=== PATIENT | male | born 1980 | race Hispanic/Latino ===

== ENCOUNTER 2022-12-07 18:42 | Emergency (ER) | payer OTHER, SELFPAY ==
[2022-12-07 18:45] VITALS: BP 153/108; PULSE 111; RESP 16; TEMP 36.6; O2SAT 96; BMI 40.1
--- NOTE | 2022-12-07 19:05 | ED_ITS ---
HPI - General Adult General Chief complaint: Psychiatric Symptoms Stated complaint: self harm Time Seen by Provider: 12/07/22 18:58 Source: patient and police Mode of arrival: Ambulatory History of Present Illness HPI narrative: 42-year-old male former smoker with PTSD and BPD presents with Radha Mendoza and the report of suicidal ideation. He states that he was having suicidal ideation with plan to slit his throat or cut his wrists with scissors. He has been having thoughts of driving his truck into oncoming traffic. He has history of prior suicide attempts with overdose in the past. He reports he was just discharged today from a mental health facility in [place]. He states he is actively having suicidal thoughts with plan, he did not even make it home before his thoughts overwhelmed him and he called 911. He states that he had been hospitalized for a week and a half and the only medication change was an increase in his Fluoxetine to 30mg. He denies any alcohol or street drug Related Data Home Medications Medication Instructions Recorded Confirmed cholecalciferol (vitamin D3) 25 25 mcg PO DAILY 12/07/22 12/07/22 mcg (1,000 unit) capsule fluoxetine 20 mg capsule (Prozac) 60 mg PO DAILY 12/07/22 12/07/22 mirtazapine 15 mg tablet 15 mg PO BEDTIME 12/07/22 12/07/22 Allergies Allergy/AdvReac Type Severity Reaction Status Date / Time No Known Drug Allergies Allergy Verified 12/07/22 20:07 Review of Systems Review of Systems Narrative: GENERAL: Denies chills, fatigue, malaise, fever, sweats. HEENT: Denies sinus pain, ear pain, sore throat, difficulty swallowing, dizziness. RESPIRATORY: Denies dyspnea, cough, wheezing, hemoptysis, sputum. CARDIOVASCULAR: Denies chest pain, palpitations, orthopnea, edema, GASTROINTESTINAL: Denies nausea, vomiting, abdominal pain, diarrhea, constipation, melena. : Denies dysuria, frequency, incontinence, hematuria, urinary retention. MUSCULOSKELETAL: denies weakness, joint pain, or bony pain SKIN: Denies rash, skin lesions, or other NEUROLOGIC: Denies weakness, headache, numbness, change in speech, confusion, seizures, incoordination. PSYCHIATRIC: See HPI 12 point review of systems is negative except for those stated above Patient History Social History Smoking Status: Former smoker Smoking Status: Former smoker Substance Use Type: marijuana Exam Narrative Exam Narrative: GENERAL: [42] year old patient appears stated age. Well-developed patient, in mild distress. Flat affect, poor eye contact, GCS 15 HEAD: Atraumatic. Normocephalic. EYES: Pupils equal round and reactive. Extraocular motions intact. No scleral icterus. No injection or drainage. ENT: Nose without bleeding, purulent drainage. Throat without erythema, tonsillar hypertrophy or exudate. Airway patent. NECK: Trachea midline. Non tender CARDIOVASCULAR: Regular rate and rhythm without murmurs, gallops, or rubs. RESPIRATORY: Clear to auscultation. Breath sounds equal bilaterally. No wheezes, rales, or rhonchi. GASTROINTESTINAL: Abdomen soft, non-tender, nondistended. EXTREMITIES: No edema or joint tenderness. BACK: Nontender without deformity or crepitance. No flank tenderness. NEURO: AOx3. SKIN: No rash or erythema of visible areas Initial Vital Signs Initial Vital Signs: Vital Signs Temperature 97.8 F 12/07/22 18:45 Pulse Rate 111 H 12/07/22 18:45 Respiratory Rate 16 12/07/22 18:45 Blood Pressure 153/108 H 12/07/22 18:45 Pulse Oximetry 96 12/07/22 18:45 Oxygen Delivery Method Room Air 12/07/22 18:45 Course Orders Ordered: ED Orders 12/08/22 02:05 TSH w/ Reflex to FT4 Stat 12/08/22 03:48 Complete Blood Count AUTO DIFF Stat Comprehensive Metabolic Panel Stat 12/08/22 03:49 Lactate (Lactic Acid) Stat Discontinued Medications Doxycycline Hyclate (Doxycycline Hyclate 100 Mg Tablet) 100 mg PO NOW ONE Stop: 12/08/22 03:50 Last Admin: 12/08/22 04:26 Dose: Not Given Documented By: PARAMJIT Propranolol HCl (Propranolol 10 Mg Tablet) 10 mg PO NOW ONE Stop: 12/07/22 19:06 Last Admin: 12/07/22 19:18 Dose: 10 mg Documented By: JANETTE Vital Signs Vital signs: Vital Signs - 8 hr 12/07/22 18:45 12/07/22 20:03 12/07/22 20:03 Temperature 97.8 F Pulse Rate 111 H 96 H Respiratory Rate 16 Blood Pressure 153/108 H 155/98 H Pulse Oximetry 96 99 Oxygen Delivery Method Room Air Room Air Medical Decision Making Lab Data 12/07/22 19:17 12/07/22 19:17 Labs: Lab Results 12/07/22 12/07/22 Range/Units 19:17 20:04 WBC 10.4 (4.5-11.0) X10^3/uL RBC 5.56 (4.5-5.9) X10^6/uL Hgb 16.7 (13.5-17.5) g/dL Hct 48.8 (41-53) % MCV 87.7 (80-100) fL MCH 30.1 (26-34) PG MCHC 34.3 (30-36) % RDW 14.5 (11.6-14.8) % Plt Count 296 (150-400) X10^3/uL Neut % (Auto) 71.9 (50-75) % Lymph % (Auto) 20.3 L (25-40) % [place] % (Auto) 5.5 (3-14) % Eos % (Auto) 1.6 L (2-4) % Baso % (Auto) 0.7 (0-2) % Neut # (Auto) 7500 H (9163-3731) /uL Lymph # (Auto) 2100 (5002-2864) /uL [place] # (Auto) 600 (0-900) /uL Eos # (Auto) 200 (0-450) /uL Baso # (Auto) 100 (0-100) /uL Sodium 138 (137-145) mmol/L Potassium 4.4 (3.4-5.1) mmol/L Chloride 105 (98-107) mmol/L Carbon Dioxide 24 (22-32) mmol/L BUN 19 (9-20) mg/dL Creatinine 0.97 (0.66-1.25) mg/dL Estimated GFR > 60 (>60) mL/min BUN/Creatinine Ratio 19.6 (6-22) Glucose 119 H (70-100) mg/dL Calcium 9.5 (8.4-10.2) mg/dL Total Bilirubin 1.3 (0.2-1.3) mg/dL AST 36 (17-59) IU/L ALT 51 H (<50) IU/L Alkaline Phosphatase 101 (38-126) U/L Total Protein 8.2 (6.3-8.2) g/dL Albumin 4.6 (3.5-5.0) g/dL Globulin 3.6 (1.7-4.1) g/dL Albumin/Globulin Ratio 1.3 (1.0-2.8) TSH 0.66 (0.47-4.68) uIU/mL Urine Color Yellow Urine Appearance Clear Urine pH 7.0 (4.5-8.0) Ur Specific [place] 1.020 (1.000-1.035) Urine Protein Trace H (Negative) Urine Glucose (UA) Negative (Negative) g/dL Urine Ketones Negative (NEGATIVE) Urine Occult Blood Trace-intact (Negative) Urine Nitrate Negative (Negative) Urine Bilirubin Negative (NEGATIVE) Urine Urobilinogen 0.2 (0.2) E.U./dL Ur Leukocyte Esterase Negative (NEGATIVE) Urine RBC 1-5/hpf (0-5/HPF) Urine WBC 0-1/hpf (0-5/HPF) Ur Squamous Epith Cells 0-1 /hpf (0-5/HPF) Urine Bacteria Few (2-10) H (None) Ur Culture Indicated? Cult not indicated U Opiates 300ng/mL cut Negative (Negative) Ur Oxycodone Screen Negative (Negative) Urine Methadone Screen Negative (Negative) Ur Barbiturates Screen Negative (Negative) U Tricyclic Antidepress Negative (Negative) Ur Phencyclidine Scrn Negative (Negative) Ur Amphetamines Screen Negative (Negative) U Methamphetamines Scrn Negative (Negative) Ur MDMA Scrn (Ecstasy) Negative (Negative) U Benzodiazepines Scrn Negative (Negative) Urine Cocaine Screen Negative (Negative) U Marijuana (THC) Screen Positive H (Negative) Ethyl Alcohol < 10 ( - 10) mg/dL SARS-CoV-2 (PCR) Negative (Negative) MDM Narrative Medical decision making narrative: [42] year old patient presents with SI with plan Prior Charts reviewed in our EMR Primary Historian: patient Labs reviewed and interpreted by myself: Patient medically cleared Consultations: [facility] - reviewing packet [facility] to accept patient in transfer (Dr. Chauhan) Transport to arrive at 0745 Patient aware of and in agreement with diagnosis and plan Critical Care Time Critical Care Time Critical Care Time: Yes Total Critical Care Time: 30 Attestation: The high probability of a clinically significant, sudden or life threatening deterioration of the [Psych] system(s) required my full and direct attention, intervention and personal management. The aggregate critical care time was [30] minutes. This time is in addition to time spent performing reported procedures but includes the following: [x] Data Review and interpretation [x] Patient assessment and monitoring of vital signs [x] Documentation [x] Medication orders and management Discharge Plan Departure Patient Disposition: Xfer Psychiatric Hosp Clinical Impression: Suicidal ideation Prescriptions: No Action mirtazapine 15 mg Tablet 15 mg PO BEDTIME fluoxetine [Prozac] 20 mg Capsule 60 mg PO DAILY cholecalciferol (vitamin D3) 25 mcg (1,000 unit) Capsule 25 mcg PO DAILY Referrals: Francisco Barrow MD [Primary Care Provider] -
[2022-12-07] MEDS: PROPRANOLOL 10 MG TABLET PO (19:18)
[2022-12-07 19:30] LABS: Add Manual Diff / Slide Review NO; Basophils Absolute Auto 100 /uL (0-100); Basophils Percent Auto 0.7 % (0-2); Eosinophils Absolute Auto 200 /uL (0-450); Eosinophils Percent Auto 1.6 % (2-4); Hematocrit 48.8 % (41-53); Hemoglobin 16.7 g/dL (13.5-17.5); Lymphocytes Absolute Auto 2100 /uL (1100-4500); Lymphocytes Percent Auto 20.3 % (25-40); Mean Corpuscular HGB Conc 34.3 % (30-36); Mean Corpuscular Hemoglobin 30.1 PG (26-34); Mean Corpuscular Volume 87.7 fL (80-100); Monocytes Absolute Auto 600 /uL (0-900); Monocytes Percent Auto 5.5 % (3-14); Neutrophils Absolute Auto 7500 /uL (1500-7000); Neutrophils Percent Auto 71.9 % (50-75); Platelet Count 296 X10^3/uL (150-400); Red Blood Cell Count 5.56 X10^6/uL (4.5-5.9); Red Cell Distribution Width 14.5 % (11.6-14.8); White Blood Cell Count 10.4 X10^3/uL (4.5-11.0)
[2022-12-07 19:34] LABS: Appearance Urine UA CLEAR; Bilirubin Urine UA NEGATIVE (NEGATIVE); Color Urine UA YELLOW; Glucose Urine UA NEGATIVE (Negative); Ketones Urine UA NEGATIVE (NEGATIVE); Leukocyte Esterase Urine UA NEGATIVE (NEGATIVE); Nitrite Urine UA NEGATIVE (Negative); Occult Blood Urine UA TRACE-INTACT (Negative); Protein Urine UA TRACE (Negative); Urobilinogen Urine UA 0.2 E.U./dL (0.2)
[2022-12-07 19:38] LABS: UR Morphine/Opiate cutoff 300 Negative (Negative); Ur Creatinine Normal (Normal); Ur Specific Gravity Normal (Normal); Urine Amphetamines Negative (Negative); Urine Barbiturates Negative (Negative); Urine Benzodiazepines Negative (Negative); Urine Cocaine Negative (Negative); Urine MDMA Negative (Negative); Urine Methadone Negative (Negative); Urine Methamphetamines Negative (Negative); Urine Oxycodone Negative (Negative); Urine Phencyclidine Negative (Negative); Urine Tetrahydrocannabinol Positive (Negative); Urine Tricyclic Antidepressant Negative (Negative); Urine pH Normal (Normal)
[2022-12-07 19:44] LABS: Bacteria Urine Few (2-10); Culture Indicated Urine Cult Not Indicated; RBC Urine 1-5/HPF (0-5/HPF); Squamous Epithelial Cell Urine 0-1 /HPF (0-5/HPF); WBC Urine 0-1/HPF (0-5/HPF)
[2022-12-07 19:47] LABS: Alanine Aminotransferase 51 IU/L (<50); Albumin 4.6 g/dL (3.5-5.0); Albumin Globulin Ratio 1.3 (1.0-2.8); Alkaline Phosphatase 101 U/L (38-126); Aspartate Aminotransferase 36 IU/L (17-59); BUN Creatinine Ratio 19.6 (6-22); Bilirubin Total 1.3 mg/dL (0.2-1.3); Blood Urea Nitrogen 19 mg/dL (9-20); Calcium 9.5 mg/dL (8.4-10.2); Carbon Dioxide 24 mmol/L (22-32); Chloride 105 mmol/L (98-107); Estimated Glomerular Filt Rate > 60 mL/min (>60); Ethanol (ETOH) < 10 mg/dL; Globulin 3.6 g/dL (1.7-4.1); Glucose 119 mg/dL (70-100); Potassium 4.4 mmol/L (3.4-5.1); Sodium 138 mmol/L (137-145); Total Protein 8.2 g/dL (6.3-8.2)
[2022-12-07 19:48] LABS: HEMOLYSIS 52 (0-50)
[2022-12-07 20:03] VITALS: BP 155/98; PULSE 96; O2SAT 99
[2022-12-07 20:23] LABS: COVID19 -Nasal RAPID Negative (Negative)
--- NOTE | 2022-12-07 23:33 | PC.NURSE ---
Addendum entered by Sandra Boyce CNA 12/08/22 01:41: SKIP note: Attempting to find placement for the patient. Called the following places w/ the following responses: [facility]: spoke to Gabriela. Asked for a packet. [facility]: [facility], said they are full until am discharges. [facility]: left message. Waiting on response. Original Note: SKIP note: Spoke to Silvia at [facility]. States there are no beds currently now, but to send a packet and they will go over it. [id number], packet sent.
[2022-12-08 03:22] LABS: TSH w/ Reflex to FT4 0.66 uIU/mL (0.47-4.68)
--- NOTE | 2022-12-08 07:23 | PC.NURSE ---
Report given to Yvonne COELHO at [facility] [phone].
[2022-12-08 07:55] VITALS: BP 147/96; PULSE 63; TEMP 36.7; O2SAT 97
== END 2022-12-08 08:00 ==
PROVIDERS: Emergency Provider Emergency Medicine; PCP Emergency Medicine
DX: R45.851 Suicidal ideations (principal); Z20.822 Contact with and (suspected) exposure to COVID-19
CPT/HCPCS: 36415; 80053; 80305; 80320; 81001; 84443; 85025; 87635; 93005; 93010; 99284; 99291; C9803